=== PATIENT | male | born 1995 | race Caucasian/White ===

== ENCOUNTER 2016-06-27 17:49 | Emergency (ER) | payer OTHER ==
[~2016-06-27 17:49] MED LIST: IBUPROFEN600 MG PO; MUCUS RELIEF400 MG PO; PROAIR HFA8.5 GM IH; ROBITUSSIN AC,T10 ML PO; TESSALON PERLE100 MG PO; ZITHROMAX250 MG PO
[2016-06-27 18:14] LABS: BASOPHIL COUNT 0.1 K/uL (0-0.1); EOSINOPHIL (%) 5.7 % (0-5); EOSINOPHIL COUNT 0.5 K/uL (0-0.3); HEMATOCRIT 43.3 % (38.0-50.0); IMMATURE GRANULOCYTE (%) 0.2 % (0.0-0.7); INSTRUMENT ABS NEUTROPHIL CT 4.5 K/uL; LYMPHOCYTE COUNT 3.6 K/uL (1.0-2.8); MCH 29.6 PG (29.0-34.0); MCHC 32.1 G/DL (30.0-36.0); MCV 92.3 FL (86-99); MEAN PLAT.VOLUME 9.9 uM^3 (9.0-12.4); MONOCYTE (%) 4.4 % (3-12); MONOCYTE COUNT 0.4 K/uL (0-0.8); NEUTROPHIL (%) 49.5 % (45-76); NEUTROPHIL COUNT 4.5 K/uL (1.8-6.4); PLATELET COUNT 392 K/uL (156-360); RBC DIS.WIDTH-CV 13.7 % (11.8-14.6); RBC DIS.WIDTH-SD 46.6 % (39-53); RED BLOOD COUNT 4.69 M/uL (4.00-5.50); WHITE BLOOD COUNT 9.1 K/uL (4.1-10.2)
[2016-06-27 18:24] LABS: CHLORIDE 105 mEq/L (99-109); POTASSIUM 3.4 mEq/L (3.7-5.4); SODIUM 141 mEq/L (136-147)
[2016-06-27 18:25] LABS: GLUCOSE 86 mg/dL (70-99)
[2016-06-27 18:27] LABS: ANION GAP 11 MEQ/L (2-14)
[2016-06-27 18:29] LABS: GFR ESTIMATE (CALCULATED) > 59 mL/min/; SERUM ETHYL ALCOHOL < 10 mg/dL
[2016-06-27 18:30] LABS: UREA NITROGEN (BUN) 12 mg/dL (9-23)
[2016-06-27 18:57] LABS: ADD MIUA? YES; BILIRUBIN NEGATIVE; BLOOD NEGATIVE; COLOR YELLOW ((YELLOW)); GLUCOSE (STRIP) NEGATIVE; KETONES NEGATIVE; LEUKOCYTES SMALL; NITRITE NEGATIVE; PROTEIN (STRIP) 30; SPECIFIC GRAVITY 1.019 (1.000-1.030); UROBILINOGEN 0.2 MG/DL (0.2-1.0)
[2016-06-27 19:12] LABS: BACTERIA RARE /HPF; EPITHELIAL CELLS RARE /HPF; MUCUS 1+ /LPF; RED BLOOD CELLS 0-5 /HPF (0-5); UCUL ADDED? NO
[2016-06-27 19:24] LABS: AMPHETAMINE NEGATIVE (500 ng/mL); BENZODIAZEPINES PRESUMPTIVE POSITIVE (150 ng/mL); COCAINE NEGATIVE (150 ng/mL); METHADONE PRESUMPTIVE POSITIVE (200 ng/mL); METHAMPHETAMINE NEGATIVE (500 ng/mL); OPIATES (MORPHINE) PRESUMPTIVE POSITIVE (100 ng/mL); PHENCYCLIDINE NEGATIVE (25 ng/mL); THC CANNABINOIDS NEGATIVE (50 ng/mL); TRICYCLIC ANTIDEPRESSANTS NEGATIVE (300 ng/mL)
[2016-06-27 19:25] LABS: ADD MEDTOX COMMENT Y; BARBITURATES NEGATIVE (200 ng/mL); INTERNAL CONTROLS VALID? YES; OXYCODONE NEGATIVE (100 ng/mL); PROPOXYPHENE NEGATIVE (300 ng/mL)
[2016-06-27] MEDS ORDERED: DOXYCYCLINE HY100 MG PO (19:53)
[2016-06-27] MEDS ORDERED: PERCOCET 5/31 TABLET PO (19:54)
[2016-06-27 19:57] LABS: BENZODIAZEPINES, URINE SCREEN POSITIVE (200 ng/mL)
== END 2016-06-27 20:16 | disposition home or self-care (01) ==
LOC: TRA 17:49 → EME 17:49
PROVIDERS: Emergency Medicine
PROC: 3E0234Z Introduction of Serum, Toxoid and Vaccine into Muscle, Percutaneous Approach (ICD-10-PCS; principal; 2016-06-27)
DX: S68.521A Partial traumatic transphalangeal amputation of right thumb, initial encounter (principal); W31.2XXA Contact with powered woodworking and forming machines, initial encounter; Y93.89 Activity, other specified; Y92.69 Other specified industrial and construction area as the place of occurrence of the external cause; Y99.0 Civilian activity done for income or pay; Z23 Encounter for immunization
CPT/HCPCS: 73130; 80048; 81003; 82150; 83690; 84999; 85025; 86850; 86900; 86901; 99281; 99285; G0480; J0690; J2405; J3010

== ENCOUNTER 2016-07-04 20:32 | Emergency (ER) | payer OTHER ==
[~2016-07-04] VITALS: Ht 182.9 cm; Wt 62.1 kg
[~2016-07-04 20:32] MED LIST changes: +DOXYCYCLINE HY100 MG PO; +PERCOCET 5/31 TABLET PO
[2016-07-04] MEDS ORDERED: OXYCODONE-APAP1 EACH PO (21:28)
[2016-07-04] MEDS ORDERED: METHADONE10 MG PO (21:28)
[2016-07-04] MEDS ORDERED: PERCOCET 5/31 TABLET PO (21:52)
[2016-07-04 22:50] VITALS: BP 122/66
== END 2016-07-04 22:50 | disposition home or self-care (01) ==
LOC: EME 20:32
DX: S68.522A Partial traumatic transphalangeal amputation of left thumb, initial encounter (principal); F11.20 Opioid dependence, uncomplicated; F17.200 Nicotine dependence, unspecified, uncomplicated
CPT/HCPCS: 99281; 99284

== ENCOUNTER 2016-11-08 22:56 | Emergency (ER) | payer OTHER ==
[~2016-11-08] VITALS: Ht 182.9 cm; Wt 66.4 kg
[~2016-11-08 22:56] MED LIST changes: +METHADONE10 MG PO; +OXYCODONE-APAP1 EACH PO
[2016-11-08] MEDS ORDERED: INDOCIN50 MG PO (23:32)
[2016-11-08] MEDS ORDERED: AUGMENTIN875 MG PO (23:32)
[2016-11-08] MEDS ORDERED: LIDOCAINE20 MG/1 M5 PO (23:32)
[2016-11-09 00:16] VITALS: BP 136/83
== END 2016-11-09 00:16 | disposition home or self-care (01) ==
LOC: EME 22:56
DX: K02.9 Dental caries, unspecified (principal); K04.7 Periapical abscess without sinus; F17.200 Nicotine dependence, unspecified, uncomplicated
CPT/HCPCS: 99281; 99283